=== PATIENT | female | born 1955 | race Caucasian/White ===

== ENCOUNTER → 2017-01-23 | Outpatient (CLI) | payer MEDICARE, MEDICAID ==
[~2017-01-23] MED LIST: CLEOCIN150 MG PO; COREG25 MG PO; GLUCOVANCE 5 MG1 TAB PO; LYRICA100 M1 PO; MOTRIN800 MG PO; NEXIUM2.5 MG PO; VICTOZA 3-PAK6 MG/ML SC; ZESTRIL40 MG PO; ZOFRAN4 MG PO
[2017-01-23 09:41] LABS: POTASSIUM 4.1 mmol/L (3.5-5.1)
[2017-01-23 09:47] LABS: THYROID STIM HORMONE (HS) 2.87 uIU/ml (0.358-4.75)
[2017-01-23 09:59] LABS: HEMOGLOBIN A1c 8.7 % (4.8-5.6)
[2017-01-23 10:14] LABS: FERRITIN 16.6 ng/mL (10.0-291.0); VITAMIN D, 25-HYDROXY 48.8 ng/mL (30-100)
[2017-01-24 05:13] LABS: TOTAL PROTEIN, SERUM 6.7 g/dL (6.0-8.5)
[2017-01-24 15:09] LABS: A/G RATIO 1.2 (0.7-1.7); ALBUMIN 3.6 g/dL (2.9-4.4); ALPHA-1-GLOBULIN 0.3 g/dL (0.0-0.4); BETA GLOBULIN 1.3 g/dL (0.7-1.3); GAMMA GLOBULIN 0.8 g/dL (0.4-1.8); GLOBULIN, TOTAL 3.1 g/dL (2.2-3.9); M-SPIKE Not Observed g/dL (Not Observed)
== END | disposition home or self-care (01) ==
LOC: LAB 08:41 → MRI 09:00
PROVIDERS: Psychiatry & Neurology Neurology
DX: E11.9 Type 2 diabetes mellitus without complications (principal); M51.26 Other intervertebral disc displacement, lumbar region; G62.9 Polyneuropathy, unspecified; E55.9 Vitamin D deficiency, unspecified; M54.5 Low back pain; R20.0 Anesthesia of skin

== ENCOUNTER 2017-07-04 12:26 | Inpatient (IN) | payer MEDICARE, MEDICAID ==
[~2017-07-04] VITALS: Ht 167.6 cm; Wt 106.3 kg
[2017-07-04] MEDS ORDERED: GUAIFENESIN1200 M1 PO (12:39)
[2017-07-04] MEDS ORDERED: METHYLPRED-DP4 MG PO (12:39)
[2017-07-04] MEDS ORDERED: AUGMENTIN 875875 MG PO (12:39)
[2017-07-04 12:43] VITALS: BP 157/90
[2017-07-04 13:26] LABS: BASO # 0.1 10*3/uL (0.0-0.1); BASO % 0.7 % (0.0-1.0); EOS % 0.1 % (1.0-4.0); HEMATOCRIT 40.8 % (37.0-47.0); HEMOGLOBIN 13.6 g/dl (12.0-16.0); LYMPH # 2.4 10*3/uL (1.3-4.4); LYMPH % 16.1 % (27.0-41.0); MEAN CELL VOLUME 89.1 fl (81.0-99.0); MEAN CORPUSCULAR HGB 29.7 pg (27.0-31.0); MEAN CORPUSCULAR HGB CONC 33.3 g/dl (33.0-37.0); MEAN PLATELET VOLUME 10.7 fl (9.6-12.3); MONO # 0.8 10*3/uL (0.1-1.0); MONO % 5.2 % (3.0-9.0); NEUT # 11.5 10*3/uL (2.3-7.9); PLATELET COUNT AUTOMATED 263 10*3/uL (130-400); RED BLOOD COUNT 4.58 10*6/uL (4.10-5.10); WHITE BLOOD COUNT 14.9 10*3/uL (4.8-10.8)
[2017-07-04 13:44] LABS: ALBUMIN 3.7 gm/dl (3.1-4.5); BUN 16 mg/dl (7-24); CHLORIDE 92 mmol/L (98-107); CKMB 1.6 ng/ml (0.5-3.6); CREATININE 0.92 mg/dL (0.55-1.02); LIPASE 165 U/L (73-393); MAGNESIUM 1.5 mg/dL (1.5-2.1); POTASSIUM 4.1 mmol/L (3.5-5.1); SGOT/AST 7 IU/L (3-35); SGPT/ALT 19 U/L (12-78); SODIUM 130 mmol/L (136-145); TOTAL PROTEIN 7.7 gm/dL (6.4-8.2)
[2017-07-04 13:45] LABS: ALKALINE PHOSPHATASE 85 U/L (45-117); CPK 43 U/L (26-192); TROPONIN I < 0.015 ng/ml (<0.045)
--- NOTE | 2017-07-04 14:00 | NUR ---
PT UP AN D WALKED TO BATHROOM STATES SHE DID GET A LITTLE SOB BUT STATES SHE IS FEELING BETTER AFTER THE BREATHING TREATMENT. NANDO GROVER RN.
[2017-07-04 14:16] VITALS: BP 134/66
[2017-07-04 15:34] VITALS: BP 147/75
[2017-07-04 15:49] VITALS: BP 139/76
[2017-07-04 16:00] VITALS: BP 139/76
[2017-07-04 20:00] VITALS: BP 135/75
--- NOTE | 2017-07-04 21:31 | NUR ---
PATIENT WAS UPSET THAT DR CHAVEZ WOULD NOT CONTINUE MEDICATIONS UNTILK MORNING SO SHE CALLED HER T COME PICK HER UP
== END 2017-07-04 21:33 | disposition left against medical advice (07) | DRG 871 ==
LOC: ED 12:26 → EDHOLD 14:30 → 4E 14:38
PROVIDERS: Emergency Medicine; ADMIT Internal Medicine
DX: A41.9 Sepsis, unspecified organism (principal); J18.9 Pneumonia, unspecified organism; R65.20 Severe sepsis without septic shock; Z53.21 Procedure and treatment not carried out due to patient leaving prior to being seen by health care provider; Z88.5 Allergy status to narcotic agent; Z79.899 Other long term (current) drug therapy; Z83.3 Family history of diabetes mellitus; Z98.891 History of uterine scar from previous surgery; Z98.51 Tubal ligation status; Z88.0 Allergy status to penicillin

== ENCOUNTER → 2017-07-08 | Outpatient (CLI) | payer MEDICARE, MEDICAID ==
[~2017-07-08] MED LIST changes: +AUGMENTIN 875875 MG PO; +GUAIFENESIN1200 M1 PO; +METHYLPRED-DP4 MG PO
== END | disposition home or self-care (01) ==
LOC: LAB 11:18
DX: R74.0 Nonspecific elevation of levels of transaminase and lactic acid dehydrogenase [LDH] (principal)

== ENCOUNTER 2019-09-03 16:30 | Inpatient (IN) | payer MEDICARE ==
[~2019-09-03] VITALS: Ht 162.5 cm; Wt 109.0 kg
--- NOTE | ~2019-09-03 | WRIGHTHP ---
[place], [place] PATIENT HISTORY AND PHYSICAL EXAM NAME: DARRYL OVIEDO [facility] #: [id number] UNIT #: [id number] ROOM: 407 DOCTOR: CHRIS CHAVEZ MD BIRTHDATE: [birth year] DOS: 09/03/2019 HISTORY OF PRESENT ILLNESS: The patient is 63 years old, not known to me. The patient of Dr. Lemus. She was seen in the office yesterday, was noted to have extremely elevated blood pressure, was admitted with hypertensive crisis. The patient's pressure was in the 200s in the office, was given labetalol 200 mg in the office. By the time she arrived at the hospital, it came down to 160/82 and soon it dropped to 98/58. She did not have any complaints of chest pains, palpitations, shortness of breath. She says that her blood pressures had been controlled until about a few months ago when it started going up. PAST MEDICAL HISTORY: Significant for: 1. Moderate cigarette smoker. 2. Type 2 diabetes mellitus, poorly controlled. 3. Benign hypertension, poorly controlled. 4. Chronic back pain. 5. COPD. MEDICATIONS: She is currently on are labetalol 200 mg t.i.d., which was just started, ProAir HFA q.i.d., Symbicort 2 puffs twice a day, aspirin 81 daily, Celebrex 200 daily, Fexmid 7.5 daily, glyburide/metformin 5/500 two tablets twice a day, hydrochlorothiazide 25 daily, lisinopril 40 daily, [place] 5 t.i.d., Lyrica 150 b.i.d., Pravachol 40 daily, insulin Levemir 50 units subcutaneous at 1700. SOCIAL HISTORY: Smoker of about 2 packs of cigarettes a day. She is retired, lives at home with her . PHYSICAL EXAMINATION: GENERAL: She is awake and alert and oriented, in no distress this morning. VITAL SIGNS: Graphic trend shows blood pressure of 182/90, pulse of 78, respirations 14, afebrile. LUNGS: Clear. HEART: Regular. ABDOMEN: Obese, soft. EXTREMITIES: Without any edema. ASSESSMENT AND PLAN: 1. Poorly controlled hypertension with hypertensive crisis. The patient is placed on multiple new antihypertensive medications. Echocardiogram was ordered, routine labs were ordered. 2. Acute kidney injury, most likely from hydrochlorothiazide causing prerenal azotemia. The patient also developed severe hypotension after admission and could have developed some slight acute tubular necrosis because her blood work was drawn after the hypotensive episode. The patient was given IV fluids. Kidney functions have improved. BUN is 25, creatinine 1.07 with GFR 52, which is stage 3A kidney disease. Rule out myocardial infarction protocol was done, which was negative. We will need to rule out renal artery stenosis. Renal ultrasound will be ordered. 3. Chronic obstructive pulmonary disease with heavy nicotine abuse without any [place], [place] PATIENT HISTORY AND PHYSICAL EXAM NAME: DARRYL OVIEDO UNIT #: [id number] ROOM: 407 DOCTOR: CHRIS CHAVEZ MD BIRTHDATE: [birth year] exacerbations. Counseled. Patch is given. CHRIS CHAVEZ MD CM:HISPHYS:PATIENT HISTORY AND PHYSICAL EXAMINATION [id number] CHRIS CHAVEZ MD 09/04/19 1128 interface
--- NOTE | ~2019-09-03 | PR ---
[place], [place] PROGRESS NOTE NAME: DARRYL OVIEDO [facility] #: [id number] UNIT #: [id number] ROOM: 407 DOCTOR: CHRIS CHAVEZ MD BIRTHDATE: [birth year] DOS: SUBJECTIVE: The patient is doing well, does not have any new complaints. Pressures have been well controlled. She has not had any hypotensive episodes in the last 24 hours. OBJECTIVE: VITAL SIGNS: Graphic trend shows a pressure 144/75, pulse of 101, respirations 18, and temperature 97.7. LUNGS: Clear. HEART: Regular. ABDOMEN: Obese, soft. EXTREMITIES: Trace edema noticed in the lower legs. LABORATORY DATA: White cell count is 7.2, hemoglobin 11.7, hematocrit 36.1. BMP: Glucose 96, BUN 20, creatinine 0.88, sodium 134, potassium 4.1. ASSESSMENT AND PLAN: 1. Hypertensive crisis. Blood pressures have definitely improved. 2. Acute kidney injury. The patient's kidney functions have now normalized. This is most likely from acute tubular necrosis. Avoid nephrotoxic medications. The patient also needs to have a renal ultrasound to rule out renal artery stenosis. Unfortunately, we are unable to do those tests on the weekends here. The patient would like to go home and have it done as an outpatient. No arrhythmias noted on the monitor. 3. Type 2 diabetes mellitus. Blood sugars controlled on her home medications. CHRIS CHAVEZ MD CM:PNTRANS [id number] CHRIS CHAVEZ MD 09/05/19 1324 interface
--- NOTE | ~2019-09-03 | DS ---
[place], [place] DISCHARGE SUMMARY NAME: DARRYL OVIEDO [facility] #: [id number] UNIT #: [id number] ROOM: 407 DOCTOR: CHRIS CHAVEZ MD BIRTHDATE: [birth year] DOS: 09/05/2019 DATE OF DISCHARGE: 09/05/2019 DIAGNOSES: 1. Benign hypertension, poorly controlled with hypertensive crisis. 2. Hypotension from medications. 3. Acute kidney injury, possibly from acute tubular necrosis. 4. Type 2 diabetes mellitus, insulin dependent. 5. Chronic low back pain. DISCHARGE MEDICATIONS: The patient's medications on discharge will be: Labetalol 200 mg t.i.d., amlodipine 5 mg daily, Lasix 20 daily p.r.n. for leg swelling, Zestril 40 daily, glimepiride/metformin 5/500 two tablets twice a day, Lyrica 150 b.i.d., Victoza 1.8 subcutaneous daily, loratadine 10 daily p.r.n., aspirin 81 daily, [place] 5 t.i.d. p.r.n., Pravachol 40 daily, ProAir HFA q.i.d. p.r.n., Symbicort 160 two puffs twice a day, omeprazole 40 daily, cyclobenzaprine 7.5 daily, insulin 50 units q.p.m. Medications discontinued were hydrochlorothiazide and Celebrex. HOSPITAL COURSE: This patient is 63 years old, was brought into the Emergency Room with elevated blood pressures. Please refer to H and P for details. After admission, the patient was placed on new medications and adjusted the home medicines. Soon after admission, blood pressure dropped to the low 90s, became quite hypotensive, was given a bolus of IV fluids. Routine labs showed that she had acute kidney injury. Nephrotoxic medications like Celebrex and hydrochlorothiazide were discontinued. The patient's blood pressures have normalized with readjustment of medications. Her kidney functions are back to normal. The patient is overall stable this morning. The plan is to discharge. She does need to have echocardiogram to check LV function. Also, need to have a renal ultrasound to rule out renal artery stenosis. The patient wants to be scheduled as an outpatient since we are unable to do it over the weekend. The patient to follow with Dr. Lemus on Friday. [place], [place] DISCHARGE SUMMARY NAME: DARRYL OVIEDO UNIT #: [id number] ROOM: 407 DOCTOR: CHRIS CHAVEZ MD BIRTHDATE: [birth year] CHRIS CHAVEZ MD CM:DISCHARG 3 CHRIS CHAVEZ MD 09/05/1925 interface
[2019-09-03 16:40] VITALS: BP 160/82
--- NOTE | 2019-09-03 16:40 | NUR ---
A 63, admitted to , under the services of Dr. ARVIN DECKER,ALIE Rosario with a diagnosis of HTN, CP. Chief complaint is HYPERTENSION. Patient arrived via wheel chair from [place]. Monitor applied. Initial assessment completed. Vital signs taken and recorded. DR. ARVIN DECKER,ALIE Rosario notified of admission to the unit. Orders received. See assessment for past medical history, medications and allergies. Patient and/or family oriented to unit. [address] visitation policy reviewed. Clothing/patient valuable form completed. KVNG TAMAYO
[2019-09-03] MEDS ORDERED: HYDROCHLOROTHIA25 M1 PO (17:13)
[2019-09-03] MEDS ORDERED: LABETALOL HCL100 MG PO (17:13)
[2019-09-03] MEDS ORDERED: CLARITIN10 MG PO (17:14)
[2019-09-03] MEDS ORDERED: CELECOXIB200 M1 PO (17:14)
[2019-09-03] MEDS ORDERED: ASPIRIN81 M1 PO (17:15)
[2019-09-03] MEDS ORDERED: NORCO 5-325 TA1 EACH PO (17:16)
[2019-09-03] MEDS ORDERED: PRAVACHOL40 MG PO (17:17)
[2019-09-03] MEDS ORDERED: PROAIR HFA8.5 GM INH (17:17)
[2019-09-03] MEDS ORDERED: SYMB160 INH (17:18)
[2019-09-03] MEDS ORDERED: ZEGERID 40 MG1 EACH PO (17:18)
[2019-09-03] MEDS ORDERED: FEXMID7.5 M1 PO (17:21)
[2019-09-03 20:00] VITALS: BP 93/48
--- NOTE | 2019-09-03 20:15 | NUR ---
IV started left forearm with #22 angiocath after 1st attempts. The IV site was prepped with Chloraprep. Heparin lock attached. Sterile dressing applied. Patient tolerated precedure well. Procedure performed according to [facility] policy & procedure. LINDSAY BAEZ
[2019-09-03 20:30] VITALS: BP 98/58
--- NOTE | 2019-09-03 20:30 | NUR ---
BP LOW CALLED DR. CHAVEZ AND NOTIFIED HER OF THIS AND ORDERS RECEIVED.
[2019-09-03 20:58] LABS: BASO # 0.1 10*3/uL (0.0-0.1); BASO % 0.8 % (0.0-1.0); EOS # 0.1 10*3/uL (0.0-0.4); EOS % 1.2 % (1.0-4.0); HEMATOCRIT 36.7 % (37.0-47.0); LYMPH # 2.5 10*3/uL (1.3-4.4); LYMPH % 24.5 % (27.0-41.0); MEAN CELL VOLUME 89.3 fl (81.0-99.0); MEAN CORPUSCULAR HGB 29.2 pg (27.0-31.0); MEAN CORPUSCULAR HGB CONC 32.7 g/dl (33.0-37.0); MEAN PLATELET VOLUME 10.3 fl (9.6-12.3); MONO # 0.9 10*3/uL (0.1-1.0); MONO % 8.5 % (3.0-9.0); NEUT # 6.5 10*3/uL (2.3-7.9); NEUT % 64.6 % (47.0-73.0); PLATELET COUNT AUTOMATED 283 10*3/uL (130-400); RED BLOOD COUNT 4.11 10*6/uL (4.10-5.10); RED CELL DISTRI WIDTH 14.2 % (0-14.5)
[2019-09-03 21:13] LABS: ALBUMIN 3.3 gm/dl (3.1-4.5); CREATININE 1.48 mg/dL (0.55-1.02); POTASSIUM 3.6 mmol/L (3.5-5.1); TOTAL PROTEIN 6.9 gm/dL (6.4-8.2)
[2019-09-03 21:35] VITALS: BP 112/54
--- NOTE | 2019-09-03 21:35 | NUR ---
CALLED DR. CHAVEZ AND NOTIFIED HER OF LAB RESULTS AND BP AT THIS TIME. IV BOLUS INFUSED. PER ORDER AND BP MEDICATIONS HELD PER DR. CHAVEZ ORDER.
[2019-09-04] VITALS: BP 117/55
--- NOTE | 2019-09-04 02:10 | NUR ---
24 HR chart check completed.
[2019-09-04 05:48] LABS: BASO # 0.1 10*3/uL (0.0-0.1); BASO % 0.9 % (0.0-1.0); EOS # 0.1 10*3/uL (0.0-0.4); EOS % 1.6 % (1.0-4.0); HEMATOCRIT 34.7 % (37.0-47.0); LYMPH # 2.3 10*3/uL (1.3-4.4); LYMPH % 28.7 % (27.0-41.0); MEAN CELL VOLUME 89.7 fl (81.0-99.0); MEAN CORPUSCULAR HGB 28.4 pg (27.0-31.0); MEAN CORPUSCULAR HGB CONC 31.7 g/dl (33.0-37.0); MEAN PLATELET VOLUME 10.4 fl (9.6-12.3); MONO # 0.7 10*3/uL (0.1-1.0); MONO % 8.7 % (3.0-9.0); NEUT # 4.7 10*3/uL (2.3-7.9); NEUT % 59.8 % (47.0-73.0); PLATELET COUNT AUTOMATED 246 10*3/uL (130-400); RED BLOOD COUNT 3.87 10*6/uL (4.10-5.10); RED CELL DISTRI WIDTH 14.3 % (0-14.5); WHITE BLOOD COUNT 7.9 10*3/uL (4.8-10.8)
[2019-09-04 06:01] LABS: BUN 25 mg/dl (7-24); CHLORIDE 97 mmol/L (98-107); CREATININE 1.07 mg/dL (0.55-1.02); POTASSIUM 3.6 mmol/L (3.5-5.1); SODIUM 134 mmol/L (136-145)
--- NOTE | 2019-09-04 06:40 | NUR ---
SKYE GIVEN PER ORDER FOR BACK AND HIP PAIN RATED "8" PER PT. SEE MAR.
[2019-09-04] MEDS ORDERED: LEVEMIR100 UNIT/1 SC (07:30)
[2019-09-04 08:00] VITALS: BP 192/82
[2019-09-04 11:59] VITALS: BP 138/73
[2019-09-04 16:00] VITALS: BP 126/59
[2019-09-04 20:00] VITALS: BP 144/67
[2019-09-04 22:20] VITALS: BP 150/78
--- NOTE | 2019-09-04 22:25 | NUR ---
SKYE GIVEN PER ORDER FOR BACK AND HIP PAIN RATED "7" SEE MAR.
[2019-09-05] VITALS: BP 119/51
[2019-09-05 04:00] VITALS: BP 144/75
[2019-09-05 06:35] LABS: BASO # 0.1 10*3/uL (0.0-0.1); EOS # 0.1 10*3/uL (0.0-0.4); EOS % 1.1 % (1.0-4.0); HEMATOCRIT 36.1 % (37.0-47.0); HEMOGLOBIN 11.7 g/dl (12.0-16.0); LYMPH # 1.6 10*3/uL (1.3-4.4); LYMPH % 22.3 % (27.0-41.0); MEAN CELL VOLUME 89.8 fl (81.0-99.0); MEAN CORPUSCULAR HGB 29.1 pg (27.0-31.0); MEAN CORPUSCULAR HGB CONC 32.4 g/dl (33.0-37.0); MONO # 0.6 10*3/uL (0.1-1.0); MONO % 7.7 % (3.0-9.0); NEUT # 4.8 10*3/uL (2.3-7.9); NEUT % 67.5 % (47.0-73.0); PLATELET COUNT AUTOMATED 267 10*3/uL (130-400); RED BLOOD COUNT 4.02 10*6/uL (4.10-5.10); RED CELL DISTRI WIDTH 14.3 % (0-14.5); WHITE BLOOD COUNT 7.2 10*3/uL (4.8-10.8)
[2019-09-05 06:50] LABS: BUN 20 mg/dl (7-24); CHLORIDE 98 mmol/L (98-107); CREATININE 0.88 mg/dL (0.55-1.02); POTASSIUM 4.1 mmol/L (3.5-5.1); SODIUM 134 mmol/L (136-145)
[2019-09-05] MEDS ORDERED: NORMODYNE,TRAN200 MG PO (07:27)
[2019-09-05] MEDS ORDERED: LASIX20 MG PO (07:27)
[2019-09-05] MEDS ORDERED: AMLODIPINE BESYL5 MG PO (07:27)
--- NOTE | 2019-09-05 07:30 | NUR ---
Patient resting quietly with no c/o discomfort. Respirations easy and regular. Vital signs stable. No overt distress. KVNG TAMAYO R
[2019-09-05 08:00] VITALS: BP 140/71
--- NOTE | 2019-09-05 08:45 | NUR ---
Discharge instructions reviewed with patient/family. Patient receptive and verbalizes understanding. Follow-up care arranged. Written instructions given to patient/family. KVNG TAMAYO
== END 2019-09-05 08:45 | disposition home or self-care (01) | DRG 304 ==
LOC: 4E 16:30
PROVIDERS: ADMIT Internal Medicine
DX: I16.9 Hypertensive crisis, unspecified (principal); N17.0 Acute kidney failure with tubular necrosis; E11.9 Type 2 diabetes mellitus without complications; G89.29 Other chronic pain; M54.5 Low back pain; J44.9 Chronic obstructive pulmonary disease, unspecified; F17.210 Nicotine dependence, cigarettes, uncomplicated; Z88.5 Allergy status to narcotic agent; Z88.0 Allergy status to penicillin

== ENCOUNTER → 2019-09-14 | Outpatient (CLI) | payer MEDICARE ==
[~2019-09-14] MED LIST changes: +AMLODIPINE BESYL5 MG PO; +ASPIRIN81 M1 PO; +CELECOXIB200 M1 PO; +CLARITIN10 MG PO; +FEXMID7.5 M1 PO; +HYDROCHLOROTHIA25 M1 PO; +LABETALOL HCL100 MG PO; +LASIX20 MG PO; +LEVEMIR100 UNIT/1 SC; +NORCO 5-325 TA1 EACH PO; +NORMODYNE,TRAN200 MG PO; +PRAVACHOL40 MG PO; +PROAIR HFA8.5 GM INH; +SYMB160 INH; +ZEGERID 40 MG1 EACH PO
[2019-09-14 12:44] LABS: BASO # 0.1 10*3/uL (0.0-0.1); BASO % 0.7 % (0.0-1.0); EOS # 0.1 10*3/uL (0.0-0.4); EOS % 0.8 % (1.0-4.0); HEMATOCRIT 37.3 % (37.0-47.0); HEMOGLOBIN 11.5 g/dl (12.0-16.0); LYMPH # 1.9 10*3/uL (1.3-4.4); LYMPH % 18.2 % (27.0-41.0); MEAN CORPUSCULAR HGB CONC 30.8 g/dl (33.0-37.0); MEAN PLATELET VOLUME 10.8 fl (9.6-12.3); MONO # 0.8 10*3/uL (0.1-1.0); MONO % 7.1 % (3.0-9.0); NEUT # 7.7 10*3/uL (2.3-7.9); NEUT % 72.8 % (47.0-73.0); PLATELET COUNT AUTOMATED 279 10*3/uL (130-400); RED CELL DISTRI WIDTH 14.6 % (0-14.5); WHITE BLOOD COUNT 10.5 10*3/uL (4.8-10.8)
[2019-09-14 12:59] LABS: ALBUMIN 3.4 gm/dl (3.1-4.5); BUN 22 mg/dl (7-24); CHLORIDE 95 mmol/L (98-107); POTASSIUM 3.5 mmol/L (3.5-5.1); SGOT/AST 12 IU/L (3-35); SGPT/ALT 18 U/L (12-78); SODIUM 133 mmol/L (136-145); TOTAL PROTEIN 7.4 gm/dL (6.4-8.2)
[2019-09-14 13:00] LABS: ALKALINE PHOSPHATASE 77 U/L (45-117)
== END | disposition home or self-care (01) ==
LOC: LAB 11:50
PROVIDERS: Internal Medicine
DX: R70.0 Elevated erythrocyte sedimentation rate (principal); R79.82 Elevated C-reactive protein (CRP); R53.81 Other malaise; R79.89 Other specified abnormal findings of blood chemistry

== ENCOUNTER → 2019-10-04 | Outpatient (CLI) | payer MEDICARE | END | disposition home or self-care (01) | LOC: CARD 09:24 | DX: I16.9 Hypertensive crisis, unspecified (principal); R06.02 Shortness of breath ==

== ENCOUNTER → 2020-12-14 | Outpatient (CLI) | payer MEDICARE | END | disposition home or self-care (01) | LOC: US 11:00 | PROVIDERS: ATTEND Internal Medicine | DX: R60.0 Localized edema (principal); R60.9 Edema, unspecified ==

== ENCOUNTER 2021-02-17 19:18 | Inpatient (IN) | payer MEDICARE ==
[~2021-02-17] VITALS: Ht 157.5 cm; Wt 113.0 kg
[2021-02-17 19:38] VITALS: BP 173/64
[2021-02-17 20:06] LABS: BASO # 0.1 10*3/uL (0.0-0.1); BASO % 0.9 % (0.0-1.0); EOS # 0.1 10*3/uL (0.0-0.4); EOS % 0.8 % (1.0-4.0); HEMATOCRIT 30.6 % (37.0-47.0); LYMPH # 1.3 10*3/uL (1.3-4.4); LYMPH % 15.2 % (27.0-41.0); MEAN CELL VOLUME 81.8 fl (81.0-99.0); MEAN CORPUSCULAR HGB 23.8 pg (27.0-31.0); MEAN CORPUSCULAR HGB CONC 29.1 g/dl (33.0-37.0); MEAN PLATELET VOLUME 9.7 fl (9.6-12.3); MONO # 0.7 10*3/uL (0.1-1.0); MONO % 7.7 % (3.0-9.0); NEUT # 6.5 10*3/uL (2.3-7.9); NEUT % 74.7 % (47.0-73.0); PLATELET COUNT AUTOMATED 336 10*3/uL (130-400); RED BLOOD COUNT 3.74 10*6/uL (4.10-5.10); RED CELL DISTRI WIDTH 15.9 % (0-14.5); WHITE BLOOD COUNT 8.7 10*3/uL (4.8-10.8)
[2021-02-17 20:17] LABS: INTERNATIONAL NORM RATIO 0.9 (2.0-3.5)
[2021-02-17 20:20] LABS: ALBUMIN 3.7 gm/dl (3.1-4.5); ALKALINE PHOSPHATASE 79 U/L (45-117); BUN 30 mg/dl (7-24); CHLORIDE 96 mmol/L (98-107); CREATININE 1.36 mg/dL (0.55-1.02); POTASSIUM 4.1 mmol/L (3.5-5.1); SGOT/AST 10 IU/L (3-35); SGPT/ALT 15 U/L (12-78); SODIUM 134 mmol/L (136-145); TOTAL PROTEIN 7.6 gm/dL (6.4-8.2)
[2021-02-17 20:22] LABS: TROPONIN I < 0.015 ng/ml (<0.045)
[2021-02-17] MEDS ORDERED: NORMODYNE,TRAN200 MG PO (23:22)
[2021-02-17] MEDS ORDERED: ZEGERID 20 MG1 EACH PO (23:26)
[2021-02-17] MEDS ORDERED: BUMETANIDE1 MG PO (23:28)
[2021-02-17 23:30] VITALS: BP 149/76
[2021-02-18] VITALS (20 sets, daily range): BP systolic 78–195; BP diastolic 26–103
[2021-02-18 06:29] LABS: ABG BASE EXCESS 6.2 mmol/L (-2.0-2.0); ARTERIAL BLOOD GAS PH 7.205 (7.35-7.45); ARTERIAL BLOOD GAS PO2 91.3 (80-90)
[2021-02-18 07:18] LABS: HEMATOCRIT 32.6 % (37.0-47.0); MEAN CELL VOLUME 81.9 fl (81.0-99.0); MEAN CORPUSCULAR HGB 23.6 pg (27.0-31.0); MEAN CORPUSCULAR HGB CONC 28.8 g/dl (33.0-37.0); PLATELET COUNT AUTOMATED 392 10*3/uL (130-400); RED BLOOD COUNT 3.98 10*6/uL (4.10-5.10); RED CELL DISTRI WIDTH 15.7 % (0-14.5); WHITE BLOOD COUNT 16.8 10*3/uL (4.8-10.8)
[2021-02-18 07:37] LABS: ALBUMIN 3.7 gm/dl (3.1-4.5); CREATININE 1.37 mg/dL (0.55-1.02); TOTAL PROTEIN 8.1 gm/dL (6.4-8.2)
[2021-02-18 07:48] LABS: POTASSIUM 5.2 mmol/L (3.5-5.1)
[2021-02-18 08:02] LABS: PLATELET SUFFICIENCY NORMAL (NORMAL); STOMATOCYTE MODERATE; TOTAL CELLS COUNTED 100 #CELLS
[2021-02-18 09:59] LABS: ABG BASE EXCESS 6.6 mmol/L (-2.0-2.0); ARTERIAL BLOOD GAS PH 7.321 (7.35-7.45); ARTERIAL BLOOD GAS PO2 273.2 (80-90)
[2021-02-18] MEDS ORDERED: ZESTORETIC 20-1 EACH PO (14:40)
[2021-02-18] MEDS ORDERED: GLIPIZIDE5 M1 PO (14:42)
[2021-02-18] MEDS ORDERED: FORTAMET1000 MG PO (14:42)
[2021-02-18] MEDS ORDERED: VITAMIN D350 MC2 PO (14:45)
[2021-02-18 16:38] LABS: ABG BASE EXCESS 5.6 mmol/L (-2.0-2.0); ARTERIAL BLOOD GAS PH 7.359 (7.35-7.45); ARTERIAL BLOOD GAS PO2 75.1 (80-90)
[2021-02-19] VITALS: BP 104/62
[2021-02-19 04:00] VITALS: BP 147/77
[2021-02-19 05:35] LABS: ALBUMIN 3.3 gm/dl (3.1-4.5); CREATININE 1.15 mg/dL (0.55-1.02); TOTAL PROTEIN 6.9 gm/dL (6.4-8.2)
[2021-02-19 06:20] LABS: BASO % 0.1 % (0.0-1.0); HEMATOCRIT 29.8 % (37.0-47.0); LYMPH # 0.8 10*3/uL (1.3-4.4); LYMPH % 5.6 % (27.0-41.0); MEAN CELL VOLUME 81.2 fl (81.0-99.0); MEAN CORPUSCULAR HGB 23.2 pg (27.0-31.0); MEAN CORPUSCULAR HGB CONC 28.5 g/dl (33.0-37.0); MEAN PLATELET VOLUME 10.6 fl (9.6-12.3); MONO % 6.8 % (3.0-9.0); NEUT % 86.9 % (47.0-73.0); PLATELET COUNT AUTOMATED 374 10*3/uL (130-400); RED BLOOD COUNT 3.67 10*6/uL (4.10-5.10); RED CELL DISTRI WIDTH 15.8 % (0-14.5); WHITE BLOOD COUNT 14.9 10*3/uL (4.8-10.8)
[2021-02-19 08:50] VITALS: BP 167/61
[2021-02-19 11:05] LABS: ABG BASE EXCESS 10.1 mmol/L (-2.0-2.0); ARTERIAL BLOOD GAS PO2 149.7 (80-90)
[2021-02-19 11:07] LABS: ARTERIAL BLOOD GAS PH 7.165 (7.35-7.45)
[2021-02-19 12:08] VITALS: BP 144/69
[2021-02-19 14:30] LABS: ABG BASE EXCESS 7.5 mmol/L (-2.0-2.0); ARTERIAL BLOOD GAS PH 7.343 (7.35-7.45); ARTERIAL BLOOD GAS PO2 72.1 (80-90)
[2021-02-19 16:00] VITALS: BP 123/61
[2021-02-19 20:00] VITALS: BP 152/80
[2021-02-20] VITALS (10 sets, daily range): BP systolic 122–157; BP diastolic 55–84
[2021-02-20 05:58] LABS: ABG BASE EXCESS 8.2 mmol/L (-2.0-2.0); ARTERIAL BLOOD GAS PH 7.427 (7.35-7.45); ARTERIAL BLOOD GAS PO2 79.6 (80-90)
[2021-02-20 06:10] LABS: ALBUMIN 3.1 gm/dl (3.1-4.5); CREATININE 1.27 mg/dL (0.55-1.02); POTASSIUM 3.9 mmol/L (3.5-5.1); TOTAL PROTEIN 6.8 gm/dL (6.4-8.2)
[2021-02-21] VITALS: BP 138/64
[2021-02-21 02:00] VITALS: BP 130/63
[2021-02-21 04:00] VITALS: BP 120/58
[2021-02-21 06:00] VITALS: BP 108/52
[2021-02-21 06:50] LABS: CREATININE 1.23 mg/dL (0.55-1.02); POTASSIUM 3.5 mmol/L (3.5-5.1); TOTAL PROTEIN 6.7 gm/dL (6.4-8.2)
[2021-02-21 07:51] LABS: ABG BASE EXCESS 10.8 mmol/L (-2.0-2.0); ARTERIAL BLOOD GAS PH 7.448 (7.35-7.45); ARTERIAL BLOOD GAS PO2 89.6 (80-90)
[2021-02-21 08:00] VITALS: BP 147/67
[2021-02-21] MEDS ORDERED: Zestril,Prinivi40 MG PO (08:36)
== END 2021-02-21 08:40 | disposition short-term general hospital (02) | DRG 208 ==
LOC: ED 19:18 → EDHOLD 23:34 → ICCU 23:34 → EDHOLD 23:34 → ICCU 02-18 13:07
PROVIDERS: Emergency Medicine; Internal Medicine Critical Care Medicine; ADMIT Internal Medicine; ATTEND Internal Medicine
PROC: 5A1935Z Respiratory Ventilation, Less than 24 Consecutive Hours (ICD-10-PCS; principal; 2021-02-18)
PROC: 0BH18EZ Insertion of Endotracheal Airway into Trachea, Via Natural or Artificial Opening Endoscopic (ICD-10-PCS; 2021-02-18)
PROC: 5A09357 Assistance with Respiratory Ventilation, Less than 24 Consecutive Hours, Continuous Positive Airway Pressure (ICD-10-PCS; 2021-02-18)
PROC: 05HY33Z Insertion of Infusion Device into Upper Vein, Percutaneous Approach (ICD-10-PCS; 2021-02-19)
PROC: B543ZZA Ultrasonography of Right Jugular Veins, Guidance (ICD-10-PCS; 2021-02-19)
PROC: 5A09357 Assistance with Respiratory Ventilation, Less than 24 Consecutive Hours, Continuous Positive Airway Pressure (ICD-10-PCS; 2021-02-19)
PROC: 0BH17EZ Insertion of Endotracheal Airway into Trachea, Via Natural or Artificial Opening (ICD-10-PCS; 2021-02-19)
PROC: 5A1945Z Respiratory Ventilation, 24-96 Consecutive Hours (ICD-10-PCS; 2021-02-19)
DX: J96.21 Acute and chronic respiratory failure with hypoxia (principal); L02.412 Cutaneous abscess of left axilla; J44.1 Chronic obstructive pulmonary disease with (acute) exacerbation; J44.0 Chronic obstructive pulmonary disease with (acute) lower respiratory infection; E87.1 Hypo-osmolality and hyponatremia; N17.9 Acute kidney failure, unspecified; E87.3 Alkalosis; I13.0 Hypertensive heart and chronic kidney disease with heart failure and stage 1 through stage 4 chronic kidney disease, or unspecified chronic kidney disease; I50.30 Unspecified diastolic (congestive) heart failure; J96.22 Acute and chronic respiratory failure with hypercapnia; D64.9 Anemia, unspecified; E87.8 Other disorders of electrolyte and fluid balance, not elsewhere classified; J20.9 Acute bronchitis, unspecified; E11.65 Type 2 diabetes mellitus with hyperglycemia; T38.0X5A Adverse effect of glucocorticoids and synthetic analogues, initial encounter; G89.29 Other chronic pain; M54.5 Low back pain; F10.20 Alcohol dependence, uncomplicated; N18.9 Chronic kidney disease, unspecified; E11.22 Type 2 diabetes mellitus with diabetic chronic kidney disease; K21.9 Gastro-esophageal reflux disease without esophagitis; E11.42 Type 2 diabetes mellitus with diabetic polyneuropathy; I05.0 Rheumatic mitral stenosis; F17.210 Nicotine dependence, cigarettes, uncomplicated; Z88.5 Allergy status to narcotic agent; Z88.0 Allergy status to penicillin; Z98.891 History of uterine scar from previous surgery; Z98.51 Tubal ligation status; Z83.3 Family history of diabetes mellitus; Y92.89 Other specified places as the place of occurrence of the external cause

== ENCOUNTER → 2021-05-28 | Outpatient (CLI) | payer MEDICARE ==
[~2021-05-28] MED LIST changes: +BUMETANIDE1 MG PO; +FORTAMET1000 MG PO; +GLIPIZIDE5 M1 PO; +VITAMIN D350 MC2 PO; +ZEGERID 20 MG1 EACH PO; +ZESTORETIC 20-1 EACH PO; +Zestril,Prinivi40 MG PO
== END | disposition home or self-care (01) ==
LOC: LAB 12:15
PROVIDERS: ATTEND Internal Medicine
DX: R05 Cough (principal)

== ENCOUNTER → 2022-06-06 | Outpatient (CLI) | payer MEDICARE, OTHER ==
[2022-06-06 13:33] LABS: CREATININE 1.24 mg/dL (0.55-1.02); POTASSIUM 4.3 mmol/L (3.5-5.1)
== END | disposition home or self-care (01) ==
LOC: LAB 13:07
PROVIDERS: ATTEND Internal Medicine
DX: R79.89 Other specified abnormal findings of blood chemistry (principal); Z13.21 Encounter for screening for nutritional disorder; Z13.0 Encounter for screening for diseases of the blood and blood-forming organs and certain disorders involving the immune mechanism; Z13.1 Encounter for screening for diabetes mellitus; Z13.220 Encounter for screening for lipoid disorders; Z13.228 Encounter for screening for other metabolic disorders; Z13.29 Encounter for screening for other suspected endocrine disorder; Z13.6 Encounter for screening for cardiovascular disorders; Z13.89 Encounter for screening for other disorder; Z13.9 Encounter for screening, unspecified

== ENCOUNTER → 2023-04-30 | Outpatient (CLI) | payer MEDICARE, OTHER ==
[~2023-04-30] MED LIST changes: +FISH OIL 1,0001 EAC1 PO; +FUROSEMIDE40 MG PO; +GLIPIZIDE-METF1 EAC1 PO; +GLIPIZIDE-METF1 EACH PO; +HYDROCODONE-AC1 EAC1 PO; +LASIX10 MG/ML IV; +MONTELUKAST SOD10 MG PO; +NORMODYNE,TRAN100 MG PO; +OMEPRAZOLE MAGN20 MG PO; +POTASSIUM CHLO20 ME3 PO; +PRAVASTATIN SOD40 MG PO; +PROVENTIL HFA6.7 GM INH; +VITAMIN D350 MCG PO
[2023-04-30 13:30] LABS: BASO % 0.5 % (0.0-1.0); EOS # 0.1 10*3/uL (0.0-0.4); HEMATOCRIT 26.8 % (37.0-47.0); LYMPH # 1.2 10*3/uL (1.3-4.4); LYMPH % 14.5 % (27.0-41.0); MEAN CELL VOLUME 75.5 fl (81.0-99.0); MEAN CORPUSCULAR HGB 23.7 pg (27.0-31.0); MEAN CORPUSCULAR HGB CONC 31.3 g/dl (33.0-37.0); MEAN PLATELET VOLUME 8.7 fl (9.6-12.3); MONO # 0.7 10*3/uL (0.1-1.0); MONO % 8.7 % (3.0-9.0); NEUT # 6.3 10*3/uL (2.3-7.9); NEUT % 75.1 % (47.0-73.0); PLATELET COUNT AUTOMATED 459 10*3/uL (130-400); RED BLOOD COUNT 3.55 10*6/uL (4.10-5.10); RED CELL DISTRI WIDTH 18.7 % (0-14.5); WHITE BLOOD COUNT 8.4 10*3/uL (4.8-10.8)
[2023-04-30 13:40] LABS: BILIRUBIN Negative (Negative); BLOOD Negative (Negative); CLARITY Clear (Clear); COLOR Yellow (Yellow); GLUCOSE Negative (Negative); KETONE Negative (Negative); LEUKO ESTERASE Negative (Negative); NITRITE Negative (Negative); PH 6.5 (4.5-8.0); UROBILINOGEN 0.2 E.U./dl (0.0-1.0)
[2023-04-30 13:50] LABS: URINE CREATININE RANDOM 28.04 mg/dL
[2023-04-30 14:00] LABS: ALKALINE PHOSPHATASE 76 U/L (46-116); BUN 35 mg/dl (9-23); CHLORIDE 91 mmol/L (98-107); CHOLESTEROL 167 mg/dL (<200); LDL CHOLESTEROL 88 mg/dL (9-159); POTASSIUM 3.9 mmol/L (3.4-5.1); SGPT/ALT 9 U/L (10-49); TOTAL PROTEIN 7.2 gm/dL (6.0-8.0); TRIGLYCERIDES 160 mg/dl (<150)
[2023-04-30 14:04] LABS: HYALINE CAST 0-2; MUCOUS 1+
== END | disposition home or self-care (01) ==
LOC: LAB 13:07
PROVIDERS: ATTEND Internal Medicine Nephrology
DX: N18.32 Chronic kidney disease, stage 3b (principal); E83.9 Disorder of mineral metabolism, unspecified; E87.1 Hypo-osmolality and hyponatremia; D50.8 Other iron deficiency anemias

== ENCOUNTER → 2023-07-11 | Outpatient (CLI) | payer MEDICARE, OTHER ==
[2023-07-11 11:58] LABS: HEMATOCRIT 29.4 % (37.0-47.0); MEAN CELL VOLUME 76.4 fl (81.0-99.0); MEAN CORPUSCULAR HGB 23.4 pg (27.0-31.0); MEAN CORPUSCULAR HGB CONC 30.6 g/dl (33.0-37.0); MEAN PLATELET VOLUME 8.6 fl (9.6-12.3); RED BLOOD COUNT 3.85 10*6/uL (4.10-5.10); RED CELL DISTRI WIDTH 15.9 % (0-14.5); WHITE BLOOD COUNT 7.6 10*3/uL (4.8-10.8)
[2023-07-11 12:00] LABS: BILIRUBIN Negative (Negative); BLOOD Negative (Negative); CLARITY Clear (Clear); COLOR Yellow (Yellow); GLUCOSE Trace (Negative); KETONE Negative (Negative); LEUKO ESTERASE Negative (Negative); NITRITE Negative (Negative); PH 7.5 (4.5-8.0); UROBILINOGEN 0.2 E.U./dl (0.0-1.0)
[2023-07-11 12:06] LABS: EPITHELIAL CELLS 0-2; RBC 0-2 rbc/hpf (0-2)
[2023-07-11 12:51] LABS: ALKALINE PHOSPHATASE 86 U/L (46-116); BUN 25 mg/dl (9-23); CHLORIDE 91 mmol/L (98-107); POTASSIUM 4.6 mmol/L (3.4-5.1); SGPT/ALT 8 U/L (10-49); TOTAL PROTEIN 7.4 gm/dL (6.0-8.0)
== END | disposition home or self-care (01) ==
LOC: LAB 11:34
PROVIDERS: ATTEND Internal Medicine Nephrology
DX: E87.1 Hypo-osmolality and hyponatremia (principal); D50.8 Other iron deficiency anemias; N18.32 Chronic kidney disease, stage 3b; I50.9 Heart failure, unspecified

== ENCOUNTER 2023-07-21 15:18 | Inpatient (IN) | payer MEDICARE, OTHER ==
[~2023-07-21] VITALS: Ht 165.1 cm; Wt 83.9 kg
[2023-07-21 15:27] VITALS: BP 147/76
[2023-07-21 16:02] LABS: BILIRUBIN Negative (Negative); BLOOD Negative (Negative); CLARITY Clear (Clear); COLOR Yellow (Yellow); GLUCOSE Negative (Negative); KETONE Negative (Negative); LEUKO ESTERASE Negative (Negative); NITRITE Negative (Negative); UROBILINOGEN 0.2 E.U./dl (0.0-1.0)
[2023-07-21 16:13] LABS: BASO # 0.1 10*3/uL (0.0-0.1); BASO % 0.6 % (0.0-1.0); EOS % 0.2 % (1.0-4.0); HEMATOCRIT 30.7 % (37.0-47.0); LYMPH # 0.9 10*3/uL (1.3-4.4); MEAN CELL VOLUME 73.1 fl (81.0-99.0); MEAN CORPUSCULAR HGB 23.1 pg (27.0-31.0); MEAN CORPUSCULAR HGB CONC 31.6 g/dl (33.0-37.0); MEAN PLATELET VOLUME 8.5 fl (9.6-12.3); MONO # 0.8 10*3/uL (0.1-1.0); NEUT # 7.6 10*3/uL (2.3-7.9); NEUT % 80.9 % (47.0-73.0); PLATELET COUNT AUTOMATED 438 10*3/uL (130-400); RED CELL DISTRI WIDTH 15.8 % (0-14.5); WHITE BLOOD COUNT 9.4 10*3/uL (4.8-10.8)
[2023-07-21 16:15] LABS: BACTERIA TRACE; RBC 0-2 rbc/hpf (0-2)
[2023-07-21 16:23] LABS: ACT PARTIAL THROMBO TIME 26.1 SECONDS (20.0-32.1)
[2023-07-21 16:35] LABS: ALKALINE PHOSPHATASE 78 U/L (46-116); BUN 46 mg/dl (9-23); CHLORIDE 84 mmol/L (98-107); LIPASE 27 U/L (12-53); POTASSIUM 4.6 mmol/L (3.4-5.1); SGPT/ALT 9 U/L (10-49); TOTAL PROTEIN 7.4 gm/dL (6.0-8.0)
[2023-07-21 19:08] VITALS: BP 134/60
[2023-07-21 22:49] LABS: POTASSIUM 4.2 mmol/L (3.4-5.1)
[2023-07-22 00:03] VITALS: BP 122/68
[2023-07-22 06:30] VITALS: BP 125/63
[2023-07-22 06:35] LABS: BASO # 0.1 10*3/uL (0.0-0.1); BASO % 0.6 % (0.0-1.0); EOS # 0.1 10*3/uL (0.0-0.4); EOS % 0.7 % (1.0-4.0); HEMATOCRIT 28.9 % (37.0-47.0); LYMPH # 1.1 10*3/uL (1.3-4.4); LYMPH % 12.8 % (27.0-41.0); MEAN CELL VOLUME 73.4 fl (81.0-99.0); MEAN CORPUSCULAR HGB 23.1 pg (27.0-31.0); MEAN CORPUSCULAR HGB CONC 31.5 g/dl (33.0-37.0); MEAN PLATELET VOLUME 9.3 fl (9.6-12.3); MONO # 1.1 10*3/uL (0.1-1.0); MONO % 12.1 % (3.0-9.0); NEUT # 6.5 10*3/uL (2.3-7.9); NEUT % 73.3 % (47.0-73.0); PLATELET COUNT AUTOMATED 428 10*3/uL (130-400); RED BLOOD COUNT 3.94 10*6/uL (4.10-5.10); RED CELL DISTRI WIDTH 15.9 % (0-14.5); WHITE BLOOD COUNT 8.8 10*3/uL (4.8-10.8)
[2023-07-22 06:50] LABS: POTASSIUM 4.2 mmol/L (3.4-5.1)
[2023-07-22 16:36] LABS: POTASSIUM 4.1 mmol/L (3.4-5.1)
== END 2023-07-22 16:18 | disposition home or self-care (01) | DRG 641 ==
LOC: ED 15:18 → EDHOLD 18:17
PROVIDERS: Emergency Medicine; Internal Medicine Nephrology; ADMIT Internal Medicine; ATTEND Internal Medicine
DX: E87.1 Hypo-osmolality and hyponatremia (principal); I50.32 Chronic diastolic (congestive) heart failure; J43.2 Centrilobular emphysema; E11.9 Type 2 diabetes mellitus without complications; M47.816 Spondylosis without myelopathy or radiculopathy, lumbar region; F10.20 Alcohol dependence, uncomplicated; F17.210 Nicotine dependence, cigarettes, uncomplicated; E78.2 Mixed hyperlipidemia; K21.9 Gastro-esophageal reflux disease without esophagitis; I11.9 Hypertensive heart disease without heart failure; E66.9 Obesity, unspecified; Z68.30 Body mass index [BMI] 30.0-30.9, adult; Z79.82 Long term (current) use of aspirin; Z79.899 Other long term (current) drug therapy; Z88.5 Allergy status to narcotic agent; Z88.0 Allergy status to penicillin; Z88.8 Allergy status to other drugs, medicaments and biological substances; Z98.51 Tubal ligation status; Z83.3 Family history of diabetes mellitus

== ENCOUNTER 2023-11-29 17:00 | Inpatient (IN) | payer MEDICARE ==
[~2023-11-29] VITALS: Ht 167.6 cm; Wt 79.6 kg
[2023-11-29 17:14] VITALS: BP 212/108
[2023-11-29 17:34] VITALS: BP 180/94
[2023-11-29] MEDS ORDERED: LASIX40 MG PO (17:39)
[2023-11-29] MEDS ORDERED: BENZONATATE100 M1 PO (17:40)
[2023-11-29] MEDS ORDERED: ATENOLOL25 MG PO (17:41)
[2023-11-29 17:58] LABS: BASO % 0.3 % (0.0-1.0); EOS # 0.1 10*3/uL (0.0-0.4); EOS % 0.7 % (1.0-4.0); HEMATOCRIT 34.3 % (37.0-47.0); LYMPH # 0.9 10*3/uL (1.3-4.4); LYMPH % 9.3 % (27.0-41.0); MEAN CELL VOLUME 84.3 fl (81.0-99.0); MEAN CORPUSCULAR HGB 27.5 pg (27.0-31.0); MEAN CORPUSCULAR HGB CONC 32.7 g/dl (33.0-37.0); MEAN PLATELET VOLUME 9.3 fl (9.6-12.3); MONO # 0.6 10*3/uL (0.1-1.0); MONO % 6.4 % (3.0-9.0); NEUT # 8.3 10*3/uL (2.3-7.9); NEUT % 83.1 % (47.0-73.0); PLATELET COUNT AUTOMATED 400 10*3/uL (130-400); RED BLOOD COUNT 4.07 10*6/uL (4.10-5.10); RED CELL DISTRI WIDTH 14.8 % (0-14.5)
[2023-11-29 18:03] VITALS: BP 163/79
[2023-11-29 18:21] LABS: POTASSIUM 4.1 mmol/L (3.4-5.1)
[2023-11-29] MEDS ORDERED: BENZONATATE 100 MG CAP PO PRN (19:05)
[2023-11-29] MEDS ORDERED: BUDESONIDE 0.5 MG AMP NEB SCH (19:18)
[2023-11-29] MEDS ORDERED: Albuterol Sulfate 2.5 MG/3 ML VIAL NEB SCH (19:20)
[2023-11-29] MEDS ORDERED: SODIUM CHLORIDE 0.9% 500 ML IV ONE (20:00)
[2023-11-29 21:00] VITALS: BP 153/82
[2023-11-29 21:55] VITALS: BP 104/47
[2023-11-29] MEDS ORDERED: Labetalol Hydrochloride 100 MG TAB PO SCH (22:00)
[2023-11-29] MEDS ORDERED: Acetaminophen/Hydrocodone 5 MG/325 MG TABLET PO SCH (22:00)
[2023-11-29 22:35] VITALS: BP 142/64
[2023-11-30] MEDS ORDERED: SODIUM CHLORIDE 0.9% 1,000 ML IV ONE (02:25)
[2023-11-30] MEDS ORDERED: MAGNESIUM SULFATE 50 ML IV ONE (02:30)
[2023-11-30] MEDS ORDERED: SODIUM CHLORIDE 0.9% 500 ML IV ONE (02:30)
[2023-11-30 05:08] VITALS: BP 135/71
[2023-11-30] MEDS ORDERED: OMEPRAZOLE 20 MG CAP PO SCH (06:00)
[2023-11-30] MEDS ORDERED: glipiZIDE 5 MG TAB PO SCH (07:30)
[2023-11-30 08:00] VITALS: BP 138/71
[2023-11-30 08:08] LABS: POTASSIUM 3.8 mmol/L (3.4-5.1)
[2023-11-30] MEDS ORDERED: LISINOPRIL 20 MG TAB PO SCH (10:00)
[2023-11-30] MEDS ORDERED: ASPIRIN ENTERIC COATED 81 MG TAB PO SCH (10:00)
[2023-11-30] MEDS ORDERED: POTASSIUM CHLORIDE 20 MEQ TAB PO SCH (10:00)
[2023-11-30] MEDS ORDERED: FUROSEMIDE 40 MG TAB PO SCH (10:00)
[2023-11-30 12:00] VITALS: BP 172/80
[2023-11-30 13:17] LABS: POTASSIUM 3.9 mmol/L (3.4-5.1)
[2023-11-30] MEDS ORDERED: DIVALPROEX ER 250 MG TAB PO SCH (14:25)
[2023-11-30] MEDS ORDERED: UREA 15 GM POWD.PACK PO SCH (14:31)
[2023-11-30 16:00] VITALS: BP 165/87
[2023-11-30] MEDS ORDERED: Acetaminophen/Hydrocodone 5 MG/325 MG TABLET PO SCH (18:00)
[2023-11-30 20:00] VITALS: BP 162/72
[2023-12-01] VITALS (7 sets, daily range): BP systolic 122–190; BP diastolic 62–86
[2023-12-01 06:42] LABS: POTASSIUM 4.2 mmol/L (3.4-5.1)
[2023-12-01 11:42] LABS: BILIRUBIN Negative (Negative); BLOOD Negative (Negative); CLARITY Clear (Clear); COLOR Yellow (Yellow); GLUCOSE 2+ (Negative); KETONE Negative (Negative); LEUKO ESTERASE Negative (Negative); NITRITE Negative (Negative); SPECIFIC GRAVITY 1.015 (1.001-1.030); UROBILINOGEN 0.2 E.U./dl (0.0-1.0)
[2023-12-01 12:32] LABS: EPITHELIAL CELLS 0-2; RBC 0-2 rbc/hpf (0-2); WBC 0-2 wbc/hpf (0-5)
[2023-12-01] MEDS ORDERED: NYSTATIN 15 GM BOT T SCH (14:00)
[2023-12-01] MEDS ORDERED: Labetalol Hydrochloride 200 MG TAB PO SCH ×2 (15:15→22:00)
[2023-12-01] MEDS ORDERED: URE-NA15 GM PO (23:32)
[2023-12-01] MEDS ORDERED: LISINOPRIL40 MG PO (23:32)
[2023-12-02] VITALS: BP 180/72
[2023-12-02] MEDS ORDERED: NORMODYNE,TRAN200 MG PO (09:25)
[2023-12-02] MEDS ORDERED: Labetalol Hydrochloride 100 MG TAB PO ONE (09:30)
[2023-12-02 09:50] VITALS: BP 172/92
[2023-12-02] MEDS ORDERED: LISINOPRIL 40 MG TAB PO SCH (10:00)
[2023-12-02] MEDS ORDERED: NYAMYC15 GM T (10:11)
[2023-12-02] MEDS ORDERED: DIVALPROEX SOD250 M1 PO (10:11)
[2023-12-02] MEDS ORDERED: FOAM BANDAGE 5X5 T ONE (11:40)
[2023-12-02] MEDS ORDERED: Labetalol Hydrochloride 100 MG TAB PO SCH (22:00)
== END 2023-12-02 12:40 | disposition home health service (06) | DRG 644 ==
LOC: ED 17:00 → EDHOLD 18:51 → 5E 18:51
PROVIDERS: Internal Medicine Nephrology; Physician Assistant Medical; ADMIT Internal Medicine; ATTEND Internal Medicine
DX: E22.2 Syndrome of inappropriate secretion of antidiuretic hormone (principal); I13.0 Hypertensive heart and chronic kidney disease with heart failure and stage 1 through stage 4 chronic kidney disease, or unspecified chronic kidney disease; J44.1 Chronic obstructive pulmonary disease with (acute) exacerbation; J96.10 Chronic respiratory failure, unspecified whether with hypoxia or hypercapnia; Z66 Do not resuscitate; K21.00 Gastro-esophageal reflux disease with esophagitis, without bleeding; E11.22 Type 2 diabetes mellitus with diabetic chronic kidney disease; E11.42 Type 2 diabetes mellitus with diabetic polyneuropathy; I50.9 Heart failure, unspecified; R62.7 Adult failure to thrive; N18.32 Chronic kidney disease, stage 3b; F17.210 Nicotine dependence, cigarettes, uncomplicated; F41.1 Generalized anxiety disorder; M47.896 Other spondylosis, lumbar region; R26.2 Difficulty in walking, not elsewhere classified; Z71.6 Tobacco abuse counseling; Z91.199 Patient's noncompliance with other medical treatment and regimen due to unspecified reason; Z88.0 Allergy status to penicillin; Z88.5 Allergy status to narcotic agent; Z88.8 Allergy status to other drugs, medicaments and biological substances; Z79.1 Long term (current) use of non-steroidal anti-inflammatories (NSAID); Z79.899 Other long term (current) drug therapy; Z68.27 Body mass index [BMI] 27.0-27.9, adult

== ENCOUNTER → 2024-03-09 | Outpatient (CLI) | payer MEDICARE, MEDICAID ==
[~2024-03-09] MED LIST changes: +ATENOLOL25 MG PO; +BENZONATATE100 M1 PO; +CLOPIDOGREL75 MG PO; +DIVALPROEX SOD250 M1 PO; +ELIQUIS5 M1 PO; +HYDR25T PO; +Hydralazine Hyd25 MG PO; +Ipratropium Brom3 ML INH; +LANTUS SOL100 UNIT/1 SC; +LASIX40 MG PO; +LISINOPRIL40 MG PO; +LOSARTAN POTASS25 M1 PO; +NYAMYC15 GM T; +PEPCID40 MG PO; +PRAZOSIN HCL1 MG PO; +TOPCARE OMEPRAZ20 MG PO; +URE-NA15 GM PO
== END | disposition home or self-care (01) ==
LOC: WOUNDCARE 00:08
PROVIDERS: ATTEND Nurse Practitioner Family
DX: S90.421A Blister (nonthermal), right great toe, initial encounter (principal); E11.621 Type 2 diabetes mellitus with foot ulcer; L97.512 Non-pressure chronic ulcer of other part of right foot with fat layer exposed; E11.51 Type 2 diabetes mellitus with diabetic peripheral angiopathy without gangrene; I87.2 Venous insufficiency (chronic) (peripheral); L60.2 Onychogryphosis; B35.1 Tinea unguium; I11.0 Hypertensive heart disease with heart failure; I50.9 Heart failure, unspecified; J44.9 Chronic obstructive pulmonary disease, unspecified; F17.210 Nicotine dependence, cigarettes, uncomplicated; Z86.73 Personal history of transient ischemic attack (TIA), and cerebral infarction without residual deficits; Z79.4 Long term (current) use of insulin; Z79.84 Long term (current) use of oral hypoglycemic drugs; Z79.01 Long term (current) use of anticoagulants; Z79.899 Other long term (current) drug therapy; X58.XXXA Exposure to other specified factors, initial encounter; Y92.89 Other specified places as the place of occurrence of the external cause; Y93.89 Activity, other specified; Y99.8 Other external cause status

== ENCOUNTER 2024-09-13 20:47 | Emergency (ER) | payer MEDICARE, MEDICAID ==
[~2024-09-13] VITALS: Ht 162.5 cm; Wt 74.4 kg
[2024-09-13 20:51] VITALS: BP 134/57
[2024-09-13] MEDS ORDERED: COREG25 MG PO (20:59)
[2024-09-13] MEDS ORDERED: ASPIRIN CHEWABL81 MG PO (20:59)
[2024-09-13] MEDS ORDERED: PANTOPRAZOLE SO40 MG PO (21:01)
[2024-09-13] MEDS ORDERED: LYRICA50 M1 PO (21:02)
[2024-09-13] MEDS ORDERED: IRON 100 PLUS1 EACH PO (21:02)
[2024-09-13] MEDS ORDERED: NORVASC5 MG PO (21:03)
[2024-09-13] MEDS ORDERED: LANTUS SOL100 UNIT/1 SC (21:04)
[2024-09-13] MEDS ORDERED: INSULIN LI100 UNIT/2 SQ (21:04)
[2024-09-13 21:13] LABS: BASO % 0.7 % (0.0-1.0); EOS # 0.2 10*3/uL (0.0-0.4); EOS % 2.7 % (1.0-4.0); HEMATOCRIT 31.9 % (37.0-47.0); MEAN CELL VOLUME 91.1 fl (81.0-99.0); MEAN CORPUSCULAR HGB 28.6 pg (27.0-31.0); MEAN CORPUSCULAR HGB CONC 31.3 g/dl (33.0-37.0); MEAN PLATELET VOLUME 10.4 fl (9.6-12.3); MONO # 0.6 10*3/uL (0.1-1.0); MONO % 9.3 % (3.0-9.0); NEUT # 3.9 10*3/uL (2.3-7.9); NEUT % 66.2 % (47.0-73.0); PLATELET COUNT AUTOMATED 228 10*3/uL (130-400); RED CELL DISTRI WIDTH 18.6 % (0-14.5); WHITE BLOOD COUNT 5.9 10*3/uL (4.8-10.8)
[2024-09-13 21:37] LABS: ALKALINE PHOSPHATASE 69 U/L (46-116); BUN 25 mg/dl (9-23); CHLORIDE 104 mmol/L (98-107); POTASSIUM 3.7 mmol/L (3.4-5.1); TOTAL PROTEIN 6.1 gm/dL (6.0-8.0)
[2024-09-13 21:38] LABS: BILIRUBIN Negative (Negative); BLOOD Negative (Negative); CLARITY Clear (Clear); COLOR Yellow (Yellow); GLUCOSE 2+ (Negative); KETONE Trace (Negative); LEUKO ESTERASE Negative (Negative); NITRITE Negative (Negative); PH 5.5 (4.5-8.0); SPECIFIC GRAVITY 1.025 (1.001-1.030); UROBILINOGEN 0.2 E.U./dl (0.0-1.0)
[2024-09-13 21:38] LABS: SGPT/ALT < 7 U/L (5-49)
[2024-09-13 21:47] LABS: BACTERIA 2+; WBC 16-20 wbc/hpf (0-5)
== END 2024-09-14 08:20 | disposition home or self-care (01) ==
LOC: ED 20:47
PROVIDERS: Internal Medicine
DX: B34.9 Viral infection, unspecified (principal); Z20.822 Contact with and (suspected) exposure to COVID-19; E44.1 Mild protein-calorie malnutrition; Z68.1 Body mass index [BMI] 19.9 or less, adult; D63.1 Anemia in chronic kidney disease; E11.65 Type 2 diabetes mellitus with hyperglycemia; E11.22 Type 2 diabetes mellitus with diabetic chronic kidney disease; I13.0 Hypertensive heart and chronic kidney disease with heart failure and stage 1 through stage 4 chronic kidney disease, or unspecified chronic kidney disease; N18.9 Chronic kidney disease, unspecified; I50.9 Heart failure, unspecified; N17.9 Acute kidney failure, unspecified; E78.00 Pure hypercholesterolemia, unspecified; K21.9 Gastro-esophageal reflux disease without esophagitis; Z88.0 Allergy status to penicillin; Z88.5 Allergy status to narcotic agent; Z88.8 Allergy status to other drugs, medicaments and biological substances; Z98.890 Other specified postprocedural states

== ENCOUNTER 2024-11-19 12:04 | Emergency (ER) | payer MEDICARE ==
[~2024-11-19] VITALS: Ht 10.2 cm; Wt 81.4 kg
[~2024-11-19 12:04] MED LIST changes: +ACETAMINOPHEN500 M4 PO; +ASPIRIN CHEWABL81 MG PO; +BUSPAR15 MG PO; +DIVALPROEX SOD500 M1 PO; +INSULIN LI100 UNIT/2 SQ; +IRON 100 PLUS1 EACH PO; +LEVOFLOXACIN750 M2 PO; +LYRICA50 M1 PO; +NORVASC5 MG PO; +PANTOPRAZOLE SO40 MG PO
[2024-11-19 12:06] VITALS: BP 169/83
[2024-11-19 12:28] LABS: BASO # 0.1 10*3/uL (0.0-0.1); BASO % 0.6 % (0.0-1.0); EOS % 0.1 % (1.0-4.0); HEMATOCRIT 34.2 % (37.0-47.0); MEAN CELL VOLUME 91.7 fl (81.0-99.0); MEAN CORPUSCULAR HGB 29.2 pg (27.0-31.0); MEAN CORPUSCULAR HGB CONC 31.9 g/dl (33.0-37.0); MEAN PLATELET VOLUME 9.6 fl (9.6-12.3); MONO # 0.6 10*3/uL (0.1-1.0); MONO % 6.4 % (3.0-9.0); NEUT # 7.6 10*3/uL (2.3-7.9); NEUT % 79.7 % (47.0-73.0); PLATELET COUNT AUTOMATED 290 10*3/uL (130-400); RED BLOOD COUNT 3.73 10*6/uL (4.10-5.10); RED CELL DISTRI WIDTH 12.9 % (0-14.5); WHITE BLOOD COUNT 9.5 10*3/uL (4.8-10.8)
[2024-11-19 12:47] LABS: POTASSIUM 4.3 mmol/L (3.4-5.1)
[2024-11-19 13:05] LABS: ABG O2 SATURATION 98.7 % (94.0-98.0); ARTERIAL BLOOD GAS PH 7.431 (7.350-7.450)
[2024-11-19] MEDS ORDERED: LASIX20 MG PO (13:53)
[2024-11-19] MEDS ORDERED: FUROSEMIDE 40 MG/4 ML VIAL IV ONE (13:55)
== END 2024-11-19 15:02 | disposition home or self-care (01) ==
LOC: ED 12:04
PROVIDERS: Emergency Medicine
DX: I11.0 Hypertensive heart disease with heart failure (principal); I50.9 Heart failure, unspecified; I48.91 Unspecified atrial fibrillation; E11.9 Type 2 diabetes mellitus without complications; K21.9 Gastro-esophageal reflux disease without esophagitis; J45.909 Unspecified asthma, uncomplicated; E78.00 Pure hypercholesterolemia, unspecified; F17.200 Nicotine dependence, unspecified, uncomplicated; Z88.5 Allergy status to narcotic agent; Z88.8 Allergy status to other drugs, medicaments and biological substances; Z98.890 Other specified postprocedural states

== ENCOUNTER 2024-11-23 18:43 | Emergency (ER) | payer MEDICARE ==
[~2024-11-23] VITALS: Ht 165.1 cm; Wt 68.0 kg
[2024-11-23 18:47] VITALS: BP 160/90
[2024-11-23] MEDS ORDERED: ACETAMINOPHEN 325 MG TAB PO ONE (23:20)
[2024-11-24] MEDS ORDERED: CYMBALTA30 MG PO (12:45)
[2024-11-24] MEDS ORDERED: HYDROCODONE-AC1 EAC1 PO (12:47)
[2024-11-24] MEDS ORDERED: VISTARIL25 MG PO (12:49)
[2024-11-24] MEDS ORDERED: Ipratropium Brom3 ML INH (12:50)
[2024-11-24] MEDS ORDERED: HUMALOG100 UNIT/2 SC (12:52)
[2024-11-24] MEDS ORDERED: VIBRAMYCIN100 MG PO (14:49)
== END 2024-11-23 23:45 | disposition home or self-care (01) ==
LOC: ED 18:43
DX: S00.93XA Contusion of unspecified part of head, initial encounter (principal); M54.2 Cervicalgia; M25.551 Pain in right hip; M25.561 Pain in right knee; E11.9 Type 2 diabetes mellitus without complications; K21.9 Gastro-esophageal reflux disease without esophagitis; J45.909 Unspecified asthma, uncomplicated; E78.00 Pure hypercholesterolemia, unspecified; I11.0 Hypertensive heart disease with heart failure; I50.9 Heart failure, unspecified; F17.200 Nicotine dependence, unspecified, uncomplicated; Z88.5 Allergy status to narcotic agent; Z88.8 Allergy status to other drugs, medicaments and biological substances; Z98.890 Other specified postprocedural states; W01.10XA Fall on same level from slipping, tripping and stumbling with subsequent striking against unspecified object, initial encounter; Y93.89 Activity, other specified; Y92.89 Other specified places as the place of occurrence of the external cause; Y99.8 Other external cause status

== ENCOUNTER 2024-11-27 16:39 | Emergency (ER) | payer MEDICARE ==
[~2024-11-27] VITALS: Ht 162.5 cm; Wt 81.9 kg
[~2024-11-27 16:39] MED LIST changes: +CYMBALTA30 MG PO; +HUMALOG100 UNIT/2 SC; +VIBRAMYCIN100 MG PO; +VISTARIL25 MG PO
[2024-11-27 17:04] LABS: HEMATOCRIT 33.8 % (37.0-47.0); MEAN CELL VOLUME 88.5 fl (81.0-99.0); MEAN CORPUSCULAR HGB 29.3 pg (27.0-31.0); MEAN CORPUSCULAR HGB CONC 33.1 g/dl (33.0-37.0); MEAN PLATELET VOLUME 9.5 fl (9.6-12.3); PLATELET COUNT AUTOMATED 421 10*3/uL (130-400); RED BLOOD COUNT 3.82 10*6/uL (4.10-5.10); RED CELL DISTRI WIDTH 13.3 % (0-14.5); WHITE BLOOD COUNT 31.9 10*3/uL (4.8-10.8)
[2024-11-27 17:07] LABS: MANUAL DIFF REFLEX YES
[2024-11-27] MEDS ORDERED: SODIUM CHLORIDE 0.9% 500 ML IV ONE (17:30)
[2024-11-27 17:46] LABS: BURR CELLS MODERATE; PLATELET SUFFICIENCY HIGH (NORMAL); TOTAL CELLS COUNTED 100 #CELLS; TOXIC GRANULATION SLIGHT
[2024-11-27 17:47] LABS: ROULEAUX SLIGHT
[2024-11-27 17:59] LABS: BILIRUBIN Negative (Negative); BLOOD Trace-Intact (Negative); CLARITY Cloudy (Clear); COLOR Dark Yellow (Yellow); GLUCOSE Negative (Negative); KETONE Trace (Negative); LEUKO ESTERASE 2+ (Negative); NITRITE Negative (Negative)
[2024-11-27] MEDS ORDERED: Ceftriaxone Sodium 1 GM/10 ML SYR IV ONE (18:00)
[2024-11-27 18:20] LABS: BACTERIA 1+; HYALINE CAST 0-2; WBC 41-50 wbc/hpf (0-5); YEAST 2+
[2024-11-28 05:39] VITALS: BP 114/61
== END 2024-11-28 05:51 | disposition short-term general hospital (02) ==
LOC: ED 16:39
PROVIDERS: Emergency Medicine
DX: A41.9 Sepsis, unspecified organism (principal); N39.0 Urinary tract infection, site not specified; E87.1 Hypo-osmolality and hyponatremia; R65.20 Severe sepsis without septic shock; N17.9 Acute kidney failure, unspecified; J44.9 Chronic obstructive pulmonary disease, unspecified; E78.5 Hyperlipidemia, unspecified; R31.9 Hematuria, unspecified; E11.22 Type 2 diabetes mellitus with diabetic chronic kidney disease; I13.0 Hypertensive heart and chronic kidney disease with heart failure and stage 1 through stage 4 chronic kidney disease, or unspecified chronic kidney disease; N18.9 Chronic kidney disease, unspecified; I50.9 Heart failure, unspecified; E78.00 Pure hypercholesterolemia, unspecified; F17.200 Nicotine dependence, unspecified, uncomplicated; Z88.5 Allergy status to narcotic agent; Z88.8 Allergy status to other drugs, medicaments and biological substances; Z98.890 Other specified postprocedural states